=== PATIENT | male | born 1975 | race Caucasian/White ===

== ENCOUNTER 2021-07-20 06:52 | Inpatient (IN) ==
[~2021-07-20 06:52] MED LIST: Buffered Lidocaine 1% SYRIN 1 ml INTRADERM ONE; Lactated Ringers 1000 ml BAG 1,000 ML IV SCH
[2021-07-20] MEDS ORDERED: Buffered Lidocaine 1% SYRIN 1 ml INTRADERM ONE (07:24)
[2021-07-20] MEDS ORDERED: ceFAZolin 2 GM in NS PREMIX 2 GM/100 ML BAG IVPB ONE (07:24)
[2021-07-20] MEDS ORDERED: Midazolam 5 mg/5 ml VIAL 1 mg/ml 5 ml VIAL (5 mg) ONE (08:08)
[2021-07-20] MEDS ORDERED: fentaNYL 100 mcg/2 ml 50 MCG/ML VIAL ONE (08:08)
[2021-07-20] MEDS ORDERED: Propofol 10 MG/ML 20 ML BTL ONE ×5 (08:08→11:55)
[2021-07-20] MEDS ORDERED: Phenylephrine 40 mcg/mL 10mL (400mcg) SYRINGE ONE ×2 (09:47→10:44)
[2021-07-20] MEDS ORDERED: Lactulose 30 ml UDC PO PRN (10:03)
[2021-07-20] MEDS ORDERED: Morphine 2 MG/ML SYRINGE IV PRN (10:03)
[2021-07-20] MEDS ORDERED: diPHENhydraMINE 25 mg TAB PO PRN (10:03)
[2021-07-20] MEDS ORDERED: Magnesium Hydroxide LIQ 30 ML UDC PO PRN (10:03)
[2021-07-20] MEDS ORDERED: diPHENhydraMINE IV 50 MG/ML 1 ml VIAL (BENADRYL) IV PRN (10:03)
[2021-07-20] MEDS ORDERED: Ondansetron ODT 4 mg TAB 4 MG TAB PO PRN (10:03)
[2021-07-20] MEDS ORDERED: Ondansetron 4 mg VIAL 2 MG/ML 2 ml VIAL IV PRN ×2 (10:03→12:28)
[2021-07-20] MEDS ORDERED: Midazolam 2 mg/2 ml VIAL 1 mg/ml 2 ml VIAL (2 mg) ONE (10:57)
[2021-07-20] MEDS ORDERED: Dexamethasone IV 4 MG/ML VIAL 1 ml VIAL ONE (10:58)
[2021-07-20] MEDS ORDERED: Metoclopramide 5 MG/ML VIAL (10 mg) ONE (10:58)
[2021-07-20] MEDS ORDERED: Ondansetron 4 mg VIAL 2 MG/ML 2 ml VIAL ONE (10:58)
[2021-07-20] MEDS ORDERED: HYDROmorphone 1 MG/1 ML SYRINGE IV PRN (12:28)
[2021-07-20] MEDS ORDERED: Naloxone 0.4 mg VIAL 0.4 mg/ml 1 ml VIAL IV PRN (12:28)
[2021-07-20] MEDS ORDERED: HYDROcodone/ACETAMIN 5/325 mg TAB PO PRN (12:28)
[2021-07-20] MEDS ORDERED: fentaNYL 100 mcg/2 ml 50 MCG/ML VIAL IV PRN (12:28)
[2021-07-20] MEDS ORDERED: Metoclopramide 5 MG/ML VIAL (10 mg) IV PRN (12:28)
[2021-07-20] MEDS ORDERED: Calcium Carb (TUMS) 500 mg CHEW TAB PO ONE (13:03)
[2021-07-20] MEDS: Lactated Ringers 1000 ml BAG 1,000 ML IV SCH (13:58)
[2021-07-20] MEDS ORDERED: Al Hydrox/Mg Hydrox/Simet LIQ 30 ML UDC ONE (14:30)
[2021-07-20] MEDS: Al Hydrox/Mg Hydrox/Simet LIQ 30 ML UDC PO PRN ×2 (14:38→21:57)
[2021-07-20] MEDS: ceFAZolin 1 GM ADVAN 1 GM in NS 0.9% 50 ML 50 ML IVPB SCH (16:31)
[2021-07-21] MEDS: Lactated Ringers 1000 ml BAG 1,000 ML IV SCH (00:12)
[2021-07-21] MEDS: Magnesium Hydroxide LIQ 30 ML UDC PO SCH ×2 (00:40→09:05)
[2021-07-21] MEDS: ceFAZolin 1 GM ADVAN 1 GM in NS 0.9% 50 ML 50 ML IVPB SCH ×2 (00:47→09:03)
[2021-07-21 06:37] LABS: Hematocrit 36 % (42-52); Hemoglobin 12.6 g/dL (14.0-18.0); Platelet Count 234 10^3/uL (150-450)
[2021-07-21 06:57] LABS: Calcium 8.4 mg/dL (8.6-10.3); EGFR African American 128.9 (>60); EGFR Non-African American 106.6 (>60); Potassium 3.7 mmol/L (3.5-5.0)
[2021-07-21] MEDS ORDERED: Vitamin THERAPEUTIC TAB PO SCH (09:00)
[2021-07-21 12:36] VITALS: BP 134/69
[2021-07-23] MEDS ORDERED: Scopolamine PATCH Remove NOTE PATCH OFF ONE (06:00)
== END 2021-07-21 13:45 | disposition home or self-care (01) | DRG 301 ==
LOC: AA 06:52 → SSU 13:53
PROVIDERS: ADMIT Orthopaedic Surgery Adult Reconstructive Orthopaedic Surgery; ATTEND Orthopaedic Surgery Adult Reconstructive Orthopaedic Surgery